=== PATIENT | female | born 1945 | race Caucasian/White ===

== ENCOUNTER → 2020-11-29 | Day surgery (SDC) | payer OTHER ==
[~2020-11-29] MED LIST: AMARYL2 MG PO; CITALOPRAM HBR40 MG PO; DITROPAN5 MG PO; GABAPENTIN600 MG PO; HYDROCODON-ACE1 EAC2 PO; LUMIGAN5 ML OD; MELATONIN10 M2 PO; METFORMIN HCL500 MG PO; PRILOSEC20 MG PO; PRINIVIL20 MG PO; SYNTHROID125 MCG PO
[2020-11-29 11:28] LABS: HCT 41.9 % (37.0-47.0); HGB 13.8 g/dl (12.5-16.0); MCHC 32.9 g/dL (32.0-36.0); MPV 9.2 fL (6.0-9.5); RBC 4.76 M/uL (4.20-5.40); RDW 14.2 % (11.5-14.0); WBC 13.1 K/uL (4.0-10.5)
[2020-11-29 11:43] LABS: ALBUMIN 3.6 g/dL (3.4-5.0); BILIRUBIN - TOTAL 0.5 mg/dL (0.2-1.0); BUN/CREAT RATIO (CALC) 23.3 RATIO; CREATININE 0.6 mg/dL (0.51-0.95); GLOBULIN (CALCULATION) 3.6 g/dL; TOTAL PROTEIN 7.2 g/dL (6.4-8.2)
== END | disposition home or self-care (01) ==
LOC: FAS 08:00
PROVIDERS: Surgery
DX: K58.9 Irritable bowel syndrome, unspecified (principal); K63.89 Other specified diseases of intestine; E11.9 Type 2 diabetes mellitus without complications; F32.9 Major depressive disorder, single episode, unspecified; I10 Essential (primary) hypertension; G47.30 Sleep apnea, unspecified; Z79.84 Long term (current) use of oral hypoglycemic drugs; Z20.822 Contact with and (suspected) exposure to COVID-19; Z88.6 Allergy status to analgesic agent; Z88.8 Allergy status to other drugs, medicaments and biological substances; Z79.899 Other long term (current) drug therapy; Z90.49 Acquired absence of other specified parts of digestive tract; Z90.710 Acquired absence of both cervix and uterus
CPT/HCPCS: 36415; 80053; 88305; J2704; J7120